=== PATIENT | female | born 1975 | race Caucasian/White ===

== ENCOUNTER → 2017-03-09 | Outpatient (REF) ==
--- NOTE | 2017-03-10 02:39 | REP ---
Clinical: Pain and disability. Technique: AP, lateral, bilateral oblique views of the right hand. Findings: No acute fracture dislocation. Osseous structures appear intact and relatively normal. Very subtle joint space narrowing at the proximal interphalangeal joints may reflect mild degenerative changes and related to patient's symptoms. Correlation is recommended. Surrounding soft tissues are unremarkable. Impression: Cannot exclude mild joint space narrowing at the proximal interphalangeal joints. Correlation with physical examination recommended. No further overt osteoarthritic degenerative changes noted. Signed by Tyshawn Yanez MD 03/10/2017 02:30 A
== END ==
LOC: M SMT 14:31
PROVIDERS: ATTEND Internal Medicine
DX: M54.5 Low back pain (principal)